=== PATIENT | female | born 1995 ===

== ENCOUNTER 2021-11-04 04:30 | Inpatient (IN) ==
[~2021-11-04 04:30] MED LIST: Famotidine 20 MG/2 ML VIAL IVP PRN; Metoclopramide 10 MG/2 ML VIAL IVP PRN; Naloxone 0.4 MG/ML INJ IVP PRN; Ringers Solution, Lactated 1,000 ML IVC SCH
[2021-11-04] MEDS ORDERED: Oxytocin 30 UNIT/503 ML BAG IVC ONE (04:46)
[2021-11-04] MEDS ORDERED: CeFAZolin 2,000 MG/120 ML BAG IVPB ONE (04:51)
[2021-11-04 04:59] LABS: Basophils % 0.2 %; Eosinophils # 0.1 K/mcL (0.0-0.6); Eosinophils % 1.1 %; Hematocrit 39.2 % (35.3-44.9); Hemoglobin 12.9 g/dL (11.5-15.4); Immature Granulocytes % 0.4 % (0-4); Lymphocytes # 2.5 K/mcL (0.6-4.6); Lymphocytes % 20.9 %; Mean Corpuscular HGB Conc 32.9 g/dL (31.6-35.5); Mean Corpuscular Volume 88.1 fL (83.0-100.0); Mean Platelet Volume 12.7 fL (9.4-12.4); Monocytes # 0.9 K/mcL (0.0-1.3); Neutrophils # 8.6 K/mcL (1.6-8.9); Platelet Count 203 K/mcL (140-400); Red Blood Count 4.45 M/mcL (3.82-4.97); Red Cell Distribution Width 14.2 % (11.5-14.5); Segmented Neutrophils % 70.4 %; White Blood Count 12.2 K/mcL (4.3-11.1)
[2021-11-04] MEDS ORDERED: *HR* FentaNYL (PF) 100 MCG/2 ML VIAL ONE (05:14)
[2021-11-04] MEDS ORDERED: *HR* Morphine Sulfate/PF 10 MG/10 ML AMPUL ONE (05:14)
[2021-11-04] MEDS ORDERED: Ondansetron 4 MG/2 ML VIAL ONE (05:16)
[2021-11-04] MEDS ORDERED: *HR* Midazolam HCl 2 MG/2 ML VIAL ONE (05:19)
[2021-11-04] MEDS ORDERED: *HR* OxyCODONE Immed Rel 5 MG TABLET PO PRN (05:22)
[2021-11-04] MEDS ORDERED: *HR* FentaNYL (PF) 100 MCG/2 ML VIAL IVP PRN (05:22)
[2021-11-04] MEDS ORDERED: Ringers Solution, Lactated 1,000 ML ONE (06:13)
[2021-11-04] MEDS ORDERED: Acetaminophen IV 1,000 MG/100 ML BAG IVPB ONE (06:13)
[2021-11-04] MEDS ORDERED: Ketorolac 30 MG/ML VIAL ONE (06:49)
[2021-11-04] MEDS ORDERED: Metoclopramide 10 MG/2 ML VIAL IVP PRN (08:49)
[2021-11-04] MEDS ORDERED: Oxytocin 30 UNIT/503 ML BAG IVC SCH (08:49)
[2021-11-04] MEDS ORDERED: Simethicone 80 MG TAB.CHEW PO PRN (08:49)
[2021-11-04] MEDS ORDERED: Ondansetron 4 MG/2 ML VIAL IVP PRN (08:49)
[2021-11-04] MEDS ORDERED: Rho Immune Globulin 1,500 UNIT SYRINGE IM ONE (08:49)
[2021-11-04] MEDS ORDERED: Ringers Solution, Lactated 1,000 ML IVC SCH (08:49)
[2021-11-04] MEDS: Acetaminophen 325 MG TABLET PO SCH ×3 (14:32→21:21)
[2021-11-04] MEDS: cephALEXin 500 MG CAPSULE PO SCH ×3 (14:35→21:23)
[2021-11-04] MEDS: metroNIDAZOLE 500 MG TABLET PO SCH ×3 (14:35→21:23)
[2021-11-04] MEDS: Prenatal Vit/FA 1 EACH TABLET PO SCH (14:35)
[2021-11-04] MEDS: Ibuprofen 600 MG TABLET PO SCH ×2 (14:51→21:20)
[2021-11-05] MEDS: Acetaminophen 325 MG TABLET PO SCH ×4 (03:08→22:07)
[2021-11-05] MEDS: Ibuprofen 600 MG TABLET PO SCH ×4 (03:08→22:07)
[2021-11-05] MEDS: *HR* OxyCODONE Immed Rel 5 MG TABLET PO PRN ×3 (03:09→15:26)
[2021-11-05 04:10] LABS: Basophils % 0.2 %; Eosinophils # 0.1 K/mcL (0.0-0.6); Eosinophils % 0.7 %; Hemoglobin 11.7 g/dL (11.5-15.4); Immature Granulocytes % 0.4 % (0-4); Lymphocytes # 2.3 K/mcL (0.6-4.6); Lymphocytes % 15.7 %; Mean Corpuscular HGB Conc 32.5 g/dL (31.6-35.5); Mean Corpuscular Hemoglobin 29.1 pg (28.0-33.3); Mean Corpuscular Volume 89.6 fL (83.0-100.0); Mean Platelet Volume 12.4 fL (9.4-12.4); Monocytes % 6.8 %; Platelet Count 227 K/mcL (140-400); Red Blood Count 4.02 M/mcL (3.82-4.97); Red Cell Distribution Width 14.3 % (11.5-14.5); Segmented Neutrophils % 76.2 %; White Blood Count 14.4 K/mcL (4.3-11.1)
[2021-11-05] MEDS: metroNIDAZOLE 500 MG TABLET PO SCH ×3 (08:51→20:49)
[2021-11-05] MEDS: cephALEXin 500 MG CAPSULE PO SCH ×3 (08:51→20:49)
[2021-11-05] MEDS: Prenatal Vit/FA 1 EACH TABLET PO SCH (08:52)
[2021-11-06] MEDS: *HR* OxyCODONE Immed Rel 5 MG TABLET PO PRN (02:26)
[2021-11-06] MEDS: Ibuprofen 600 MG TABLET PO SCH ×4 (03:55→11:48)
[2021-11-06] MEDS: Acetaminophen 325 MG TABLET PO SCH ×2 (03:56→11:48)
[2021-11-06 07:28] VITALS: BP 112/75; PULSE 95; TEMP 98.1; O2SAT 96
[2021-11-06] MEDS: Prenatal Vit/FA 1 EACH TABLET PO SCH (07:45)
== END 2021-11-06 12:30 | disposition home or self-care (01) | DRG 788 ==
LOC: 1NENULAB → 1NENUOBS 09:46
PROVIDERS: ADMIT Advanced Practice Midwife; ATTEND Student in an Organized Health Care Education/Training Program